=== PATIENT | male | born 1960 ===

== ENCOUNTER 2019-11-26 22:31 | Inpatient (IN) | payer OTHER ==
[~2019-11-26] VITALS: Ht 175.3 cm; Wt 94.0 kg
[~2019-11-26 22:31] MED LIST: ALBU90OI6 INH; BUDE10.22 INH; Cough Syru100 MG/5 M PO; ELIQUIS5 MG PO; Flonase 0.05% N16 GM; HYDACE5325 PO; Inderal 20 mg T20 MG GT; LANS15EC PO; Loratadine10 MG PO; SERT25 PO
[2019-11-26 23:01] LABS: BASOPHILS ABSOLUTE AUTO 0.05 K/mm3 (0.00-0.23); BASOPHILS PERCENT AUTO 1 % (0-2); EOSINOPHILS PERCENT AUTO 2 % (0-6); Hematocrit 45.9 % (37.0-53.0); Hemoglobin 15.5 g/dL (13.5-17.5); IMMATURE GRAN ABSOLUTE AUTO 0.02 K/mm3 (0.00-0.10); IMMATURE GRAN PERCENT AUTO 0 % (0-1); LYMPHOCYTES ABSOLUTE AUTO 1.67 K/mm3 (0.84-5.20); LYMPHOCYTES PERCENT AUTO 29 % (21-46); MONOCYTES ABSOLUTE AUTO 0.61 K/mm3 (0.16-1.47); MONOCYTES PERCENT AUTO 11 % (4-13); Mean Corpuscular HGB 32.4 pg (26.0-34.0); Mean Corpuscular HGB Conc 33.8 g/dL (31.5-36.5); Mean Corpuscular Volume 96 fL (80-100); Mean Platelet Volume 8.5 fL (9.1-12.4); NEUTROPHILS PERCENT AUTO 58 % (41-73); Platelet Count 286 K/mm3 (150-400); RDW Coefficient Variation 12.3 % (11.7-14.2); RDW Standard Deviation 44.1 fL (35.1-46.3); Red Blood Cell Count 4.78 M/mm3 (4.30-5.90); White Blood Cell Count 5.75 K/mm3 (4.00-11.30)
[2019-11-26 23:19] LABS: Alanine Aminotransfer (ALT/SGP 26 U/L (12-78); Albumin, Blood 3.8 g/dL (3.4-5.0); Alk Phos 125 U/L (50-136); Anion Gap 7 mmol/L (6-16); Aspartate Aminotrans (AST/SGOT 29 U/L (12-37); Bilirubin, Total 0.6 mg/dL (0.1-1.0); Blood Urea Nitrogen 14 mg/dL (8-24); Bun/Creatinine Ratio 13.1 (12.0-20.0); CO2, Blood 25 mmol/L (21-32); Calcium, Blood 8.5 mg/dL (8.5-10.1); Chloride, Blood 106 mmol/L (98-108); Creatinine, Blood 1.07 mg/dL (0.60-1.20); Ethanol (Alcohol), Blood, Med 23 mg/dL; Glomerular Filtration Rate >60 (60-); Glucose, Blood 92 mg/dL (70-99); Potassium, Blood 3.9 mmol/L (3.5-5.5); Sodium, Blood 138 mmol/L (136-145); Total Protein, Blood 7.8 g/dL (6.4-8.2); Troponin I <0.015 ng/mL (0.000-0.040)
[2019-11-27 04:11] LABS: Anion Gap 6 mmol/L (6-16); Blood Urea Nitrogen 17 mg/dL (8-24); Bun/Creatinine Ratio 18.2 (12.0-20.0); CO2, Blood 23 mmol/L (21-32); Calcium, Blood 7.9 mg/dL (8.5-10.1); Chloride, Blood 110 mmol/L (98-108); Creatinine, Blood 0.93 mg/dL (0.60-1.20); Glomerular Filtration Rate >60 (60-); Glucose, Blood 109 mg/dL (70-99); Potassium, Blood 4.4 mmol/L (3.5-5.5); Sodium, Blood 139 mmol/L (136-145)
[2019-11-27 04:15] LABS: Cholesterol 210 mg/dL (50-200); HDL Cholesterol 30 mg/dL (>39); LDL/HDL RATIO Unable to Calculate; Low Density Lipoprotein Chol Unable to Calculate mg/dL (0-110); Triglycerides 478 mg/dL (30-160); Very Low Density Lipoprot Chol Unable to Calculate mg/dL (6-32)
--- NOTE | 2019-11-27 04:32 | NUR ---
SHIFT SUMMARY: PATIENT ARRIVED TO ROOM U13 AT APPROX 0040 VIA GURNEY FROM ER. PATIENT ABLE TO PIVOT TRANSFER TO BED FROM [place], STEADY ON FEET, VERY DYSPENIC WITH SMALL MOVEMENTS. PATIENT SKIN C/D/I, ABDOMEN FIRM AND DISTENDED. PATIENT ALERT AND ORIENTED, ADMISSION COMPLETED. PATIENT ORIENTED TO ROOM, CALL LIGHT AND HOSPITAL POLICIES. HR RANGING FROM 100 TO 130, TRENDING DOWN WITH ADMINISTRATION OF ORDERED MEDICATIONS (SEE EMAR). ALL OTHER VSS, CALL LIGHT WITHIN REACH, BED LOW AND LOCKED.
--- NOTE | 2019-11-27 07:30 | NUR ---
REPORT REC'D FROM NINI WEST. 0700 MED DUE AND GIVEN. DILT GTT INFUSING AT 10MG/HR BAG EMPTY, NEW ONE REQUESTED. PT ALSO REPORTS HEADACHE, TYLENOL GIVEN. VSS - HR 90'S-150'S ASSESSMENT NOTED. CALL LIGHT IN REACH.
[2019-11-27 07:50] LABS: Source, Urine Voided
[2019-11-27 07:57] LABS: Bilirubin, Urine Neg (Neg); Blood, Urine 1+ (Neg); Glucose Qualitative, Urine Neg (Neg); Ketones, Urine Neg (Neg); Leukocyte Esterase, Urine 1+ (Neg); Nitrite, Urine Neg (Neg); Protein, Urine Neg (Neg); Urobilinogen, Urine NORM (Normal)
[2019-11-27 08:05] LABS: Appearance, Urine Clear (Clear); Color, Urine Yellow (P-Yellow)
[2019-11-27 08:10] LABS: Bacteria Mod /hpf; Squamous Epithelial Cells Few /hpf (Few)
[2019-11-27 08:36] LABS: U Amphetamine Screen Not Detected; U Barbituate Screen Not Detected; U Benzodiazapine Screen Not Detected; U Buprenorphine Screen Not Detected; U Cannabinoids Screen Not Detected; U Cocaine Screen Not Detected; U Methadone Screen Not Detected; U Methamphetamine Screen Not Detected; U Opiates Screen Not Detected; U Oxycodone Screen Not Detected; U Phencyclidine Screen Not Detected; U Propoxyphene Screen Not Detected
--- NOTE | 2019-11-27 11:50 | NUR ---
PT CONVERTED TO NSR AT 1140 DR ROMERO NOTIFIED. NEW ORDERS ALSO ENTERED. CARDIZEM STOPPED AND IV SL'D. NEW MEDS GIVEN. PT REPORTS HEADACHE IMPROVED. CALL LIGHT IN REACH.
--- NOTE | 2019-11-27 14:25 | NUR ---
PT REPORTING UPPER BACK PAIN. TYLENOL GIVEN REQUESTED. NO ADDITIONAL NEEDS.CALL LIGTH IN REACH.
--- NOTE | 2019-11-27 17:53 | NUR ---
SHIFT SUMMARY PT DOING BETTER THIS EVENING. NO LONGER REPORTING TIGHTNESS OR DISCOMFORT TO CHEST/BACK/RIBS/ABD, HEADACHE RESOLVED WELL. PT AMBULATORY AND INDEPENT IN ROOM. CONVERTED FROM AFIB TO NSR AT 1140 THIS MORNING, STRIP IN CHART, DR ROMERO NOTIFIED. ALSO ISSUED NEW ORDERS AROUND THE SAME TIME AND WAS ALSO NOTIFIED DILTIAZEM DRIP HAS BEEN STOPPED. NO OTHER CHANGES THIS SHIFT. PT CURRENTLY HAVING DINNER WITH SPOUSE, CALL LIGHT IN REACH. WILL REPORT TO CALEB RN.
--- NOTE | 2019-11-28 06:25 | NUR ---
SHIFT SUMMARY PT SLEEPING IN ROOM COMFORTABLY AT THIS TIME. NO ACUTE CHANGES IN STATUS. PT SLEPT WELL T/O NIGHT. DENIED CP OR SOB. RESP EVEN UNLABORED ON RA W/ SATS >92%. PT WAS INDEPENDENT IN ROOM T/O NIGHT. TOOK SHOWER BEFORE BED. PT DENIED NEEDS. CALL LIGHT IN REACH.
--- NOTE | 2019-11-28 07:49 | NUR ---
REPORT REC'D FROM DAVID WEST. PT SITTING UP IN BED WATCHING A MOVIE ON LAPTOP. NADN. VSS. DENIES ANY NEEDS AT THIS TIME. ASSESSMENT NOTED. CALL LIGHT IN REACH.
[2019-11-28] MEDS ORDERED: Mucinex1200 MG PO (10:20)
[2019-11-28] MEDS ORDERED: METO25ER PO (10:20)
[2019-11-28] MEDS ORDERED: PRED20 PO (10:22)
--- NOTE | 2019-11-28 11:07 | NUR ---
PT DC'D WITH VERBAL AND WRITTEN INSTRUCTIONS AFTER REC'ING ADD'L EDUCATION FROM CAROLE Simpson RN. QUESTIONS ADDRESSED TO PT'S SATIFACTION. IV'S DC'D CATH INTACT X2. PT CALLING SPOUSE FOR RIDE HOME. TELE REMOVED EARLIER.
== END 2019-11-28 12:37 | disposition home or self-care (01) | DRG 309 ==
LOC: ER 22:31 → PCU 22:32 → ER 22:32 → PCU 11-27 00:38
PROVIDERS: Emergency Medicine; Nurse Practitioner Acute Care; ADMIT Internal Medicine
DX: I48.91 Unspecified atrial fibrillation (principal); J44.1 Chronic obstructive pulmonary disease with (acute) exacerbation; I10 Essential (primary) hypertension; K21.9 Gastro-esophageal reflux disease without esophagitis; E78.5 Hyperlipidemia, unspecified; F43.10 Post-traumatic stress disorder, unspecified; F17.210 Nicotine dependence, cigarettes, uncomplicated; Z85.118 Personal history of other malignant neoplasm of bronchus and lung; Z92.21 Personal history of antineoplastic chemotherapy; Z92.3 Personal history of irradiation; Z79.51 Long term (current) use of inhaled steroids; Z79.899 Other long term (current) drug therapy
CPT/HCPCS: 36415; 71045; 80048; 80053; 80061; 81001; 83880; 84443; 84484; 85025; 93005; 93010; 94640; 94760; 96365; 96368; 96375; 96376; 99285-25; A9270; G0480; J1160; J2405; J2930; J3475; J7030; J7050

== ENCOUNTER 2020-10-24 16:41 | Inpatient (IN) | payer OTHER ==
[~2020-10-24] VITALS: Ht 165.1 cm; Wt 90.9 kg
[~2020-10-24 16:41] MED LIST changes: -BUDE10.22 INH; +METO25ER PO; +Mucinex1200 MG PO; +PRED20 PO; +SYMBICORT 160-4.6 GM INH
[2020-10-24 17:04] LABS: BASOPHILS ABSOLUTE AUTO 0.04 K/mm3 (0.00-0.23); BASOPHILS PERCENT AUTO 1 % (0-2); EOSINOPHILS ABSOLUTE AUTO 0.06 K/mm3 (0.00-0.68); EOSINOPHILS PERCENT AUTO 1 % (0-6); Hematocrit 42.9 % (37.0-53.0); Hemoglobin 14.5 g/dL (13.5-17.5); IMMATURE GRAN ABSOLUTE AUTO 0.02 K/mm3 (0.00-0.10); IMMATURE GRAN PERCENT AUTO 0 % (0-1); LYMPHOCYTES ABSOLUTE AUTO 1.35 K/mm3 (0.84-5.20); LYMPHOCYTES PERCENT AUTO 20 % (21-46); MONOCYTES PERCENT AUTO 8 % (4-13); Mean Corpuscular HGB 31.4 pg (26.0-34.0); Mean Corpuscular HGB Conc 33.8 g/dL (31.5-36.5); Mean Corpuscular Volume 93 fL (80-100); Mean Platelet Volume 8.4 fL (9.1-12.4); NEUTROPHILS ABSOLUTE AUTO 4.65 K/mm3 (1.96-9.15); NEUTROPHILS PERCENT AUTO 70 % (41-73); Platelet Count 253 K/mm3 (150-400); RDW Coefficient Variation 12.1 % (11.7-14.2); RDW Standard Deviation 41.4 fL (35.1-46.3); Red Blood Cell Count 4.62 M/mm3 (4.30-5.90); White Blood Cell Count 6.62 K/mm3 (4.00-11.30)
[2020-10-24 17:18] LABS: Alanine Aminotransfer (ALT/SGP 13 U/L (12-78); Albumin, Blood 3.7 g/dL (3.4-5.0); Albumin/Globulin Ratio 1.1 (0.8-1.8); Alk Phos 92 U/L (50-136); Anion Gap 9 mmol/L (6-16); Aspartate Aminotrans (AST/SGOT 20 U/L (12-37); Bilirubin, Total 0.8 mg/dL (0.1-1.0); Blood Urea Nitrogen 13 mg/dL (8-24); Bun/Creatinine Ratio 14.1 (12.0-20.0); CO2, Blood 22 mmol/L (21-32); Chloride, Blood 105 mmol/L (98-108); Creatinine, Blood 0.92 mg/dL (0.60-1.20); Globulin, Blood 3.4 g/dL (2.2-4.0); Glomerular Filtration Rate >60 (60-); Glucose, Blood 98 mg/dL (70-99); Potassium, Blood 4.2 mmol/L (3.5-5.5); Sodium, Blood 136 mmol/L (136-145); Total Protein, Blood 7.1 g/dL (6.4-8.2); Troponin I 0.029 ng/mL (0.000-0.040)
[2020-10-24 17:33] LABS: International Normalized Ratio 1.07; Prothrombin Time Results 11.4 Sec (9.7-11.5)
[2020-10-24] MEDS ORDERED: ELIQUIS5 MG PO (19:55)
[2020-10-24] MEDS ORDERED: ATOR10 PO (20:04)
[2020-10-24] MEDS ORDERED: Vitamin D2000 UNIT PO (20:05)
[2020-10-24] MEDS ORDERED: BUPROPION XL150 M1 PO (20:05)
[2020-10-24] MEDS ORDERED: DOCU100 PO (20:06)
[2020-10-24] MEDS ORDERED: TIOT18 INH (20:07)
[2020-10-24] MEDS ORDERED: Naltrexone HCl50 MG PO (20:07)
[2020-10-24] MEDS ORDERED: TRAZ50 PO (20:08)
[2020-10-24 21:31] LABS: Magnesium, Blood 2.1 mg/dL (1.6-2.4); Phosphorus, Blood 3.5 mg/dL (2.5-4.9); Troponin I 0.048 ng/mL (0.000-0.040)
--- NOTE | 2020-10-25 02:26 | NUR ---
ADMIT PT TO ROOM VIA STRETCHER FROM ER. AXO. WALKS INTO BED. PT IN SINUS RHTYHM. BP STABLE AND INCREASING. ON RA, SPO2 >96%. PT DENYING CP/PRESSURE/SOB. MEDS PER EMAR GIVEN. ADMISSION COMPLETED. NS INFUSING AT 100ML/HR ORDERED. PT PROVIDED SANDWHICH. PT VERYTALKATIVE WITH STAFF. OTHERWISE, PT RESTING POST ADMISSION.
[2020-10-25 04:49] LABS: BASOPHILS ABSOLUTE AUTO 0.04 K/mm3 (0.00-0.23); BASOPHILS PERCENT AUTO 1 % (0-2); EOSINOPHILS PERCENT AUTO 2 % (0-6); Hematocrit 39.6 % (37.0-53.0); Hemoglobin 13.1 g/dL (13.5-17.5); IMMATURE GRAN ABSOLUTE AUTO 0.02 K/mm3 (0.00-0.10); IMMATURE GRAN PERCENT AUTO 0 % (0-1); LYMPHOCYTES ABSOLUTE AUTO 1.45 K/mm3 (0.84-5.20); LYMPHOCYTES PERCENT AUTO 23 % (21-46); MONOCYTES ABSOLUTE AUTO 0.53 K/mm3 (0.16-1.47); MONOCYTES PERCENT AUTO 8 % (4-13); Mean Corpuscular HGB 31.1 pg (26.0-34.0); Mean Corpuscular HGB Conc 33.1 g/dL (31.5-36.5); Mean Corpuscular Volume 94 fL (80-100); Mean Platelet Volume 8.7 fL (9.1-12.4); NEUTROPHILS PERCENT AUTO 66 % (41-73); Platelet Count 225 K/mm3 (150-400); RDW Coefficient Variation 12.1 % (11.7-14.2); RDW Standard Deviation 41.7 fL (35.1-46.3); Red Blood Cell Count 4.21 M/mm3 (4.30-5.90); White Blood Cell Count 6.34 K/mm3 (4.00-11.30)
--- NOTE | 2020-10-25 04:50 | NUR ---
END OF SHIFT SUMMARY NO ACUTE CHANGES THIS SHIFT POST ADMIT. REMAINS AXO, ON RA, IN SR, BP STABLE. HAS CONTINUED TO DENY CP/PRESSURE, SOB. NS INFUSING. VOIDS INTO URINAL. PT USES CALL LIGHT APPROPRIATEWLY. WILL CONTINUE TO MONITOR UNTIL SHIFT CHANGE.
[2020-10-25 05:08] LABS: Anion Gap 5 mmol/L (6-16); Blood Urea Nitrogen 14 mg/dL (8-24); Bun/Creatinine Ratio 16.4 (12.0-20.0); CHOL/HDL RATIO 5.4; CO2, Blood 26 mmol/L (21-32); Calcium, Blood 8.3 mg/dL (8.5-10.1); Chloride, Blood 110 mmol/L (98-108); Cholesterol 166 mg/dL (50-200); Creatinine, Blood 0.86 mg/dL (0.60-1.20); Glomerular Filtration Rate >60 (60-); Glucose, Blood 113 mg/dL (70-99); HDL Cholesterol 31 mg/dL (>39); LDL/HDL RATIO 1.8; Low Density Lipoprotein Chol 56 mg/dL (0-110); Magnesium, Blood 2.2 mg/dL (1.6-2.4); Potassium, Blood 3.8 mmol/L (3.5-5.5); Sodium, Blood 141 mmol/L (136-145); Triglycerides 393 mg/dL (30-160); Very Low Density Lipoprot Chol 78 mg/dL (6-32)
--- NOTE | 2020-10-25 08:35 | NUR ---
INITIAL ASSESSMENT PATIENT ALERT AND ORIENTED X 4, AFEBRILE. PATIENT WEAK BUT ABLE TO GET TO TOILET WITH 1 PERSON ASSIST. PATIENT DOES FEEL DIZZY UPON INITIALLY DANGLING ON SIDE OF BED. PATIENT ABLE TO MOVE ALL EXTREMITIES. LIMITED ROM IN R SHOULDER. R SHOULDER IS SORE; PATIENT STATES THIS IS CHRONIC. PATIENT SATTING 90% AND GREATER ON RA. EXPIRATORY WHEEZES NOTED IN UPPER LUNG LOBES. LOWER LOBES DIMINISHED. PATIENT IN SR, HR 70S TO 80S. SBP 100. ABDOMEN MODERATLEY DISTENDED; PATIENT STATES THIS IS NORMAL FOR HIM. WNL. SKIN APPEARS WNL. IVS FLUSHED AND SALINE LOCKED. BED LOW, CALL LIGHT IN REACH. WILL CONTINUE TO MONITOR PATIENT FREQUENTLY THROUGHOUT SHIFT.
[2020-10-25] MEDS ORDERED: ACET325 PO (11:10)
[2020-10-25] MEDS ORDERED: ASPI325 PO (11:11)
[2020-10-25] MEDS ORDERED: LISI5 PO (11:12)
[2020-10-25] MEDS ORDERED: NICODERM CQ TOP (11:13)
[2020-10-25] MEDS ORDERED: NITR.4SL SL (11:13)
[2020-10-25] MEDS ORDERED: ONDA4ODT MM (11:14)
--- NOTE | 2020-10-25 12:20 | NUR ---
SHIFT SUMMARY PATIENT REMAINED ALERT AND ORIENTED X 4, AFEBRILE. PATIENT FELT GOOD AMBULATING AROUND ON OWN PRIOR TO DISCHARGE. PATIENT OFFERED WHEELCHAIR TO TAKE HIM OUT TO CAR. PATIENT WANTED TO WALK AND POLITELY DENIED WHEELCHAIR. SON AT SIDE AND HERE TO DRIVE HIM HOME. PATIENT REMAINED SATTING 90% AND GREATER ON RA. PATIENT REMAINED IN SR, HR 70S TO 80S. SBP 90S TO 100. NO BM THIS SHIFT. PATIENT HAD GOOD APPETITE AND ATE ALL OF BREAKFAST. WNL. SKIN WNL. IVS REMOVED BY CHARGE NURSE, MYNOR. ALL DISCHARGE INFORMATION AND EDUCATION PROVIDED TO PATIENT BY CHARGE NURSE. ALL BELONGINGS SENT HOME WITH PATIENT.
== END 2020-10-25 12:15 | disposition home or self-care (01) | DRG 310 ==
LOC: ER 16:41 → ERHOLD 20:58 → ICUE 20:58
PROVIDERS: Emergency Medicine; ADMIT Family Medicine
PROC: 5A2204Z Restoration of Cardiac Rhythm, Single (ICD-10-PCS; principal; 2020-10-24)
DX: I48.91 Unspecified atrial fibrillation (principal); I48.92 Unspecified atrial flutter; I10 Essential (primary) hypertension; E78.5 Hyperlipidemia, unspecified; J44.9 Chronic obstructive pulmonary disease, unspecified; K21.9 Gastro-esophageal reflux disease without esophagitis; Z85.118 Personal history of other malignant neoplasm of bronchus and lung; F43.10 Post-traumatic stress disorder, unspecified; Z90.2 Acquired absence of lung [part of]; I95.9 Hypotension, unspecified; Z79.01 Long term (current) use of anticoagulants; F17.200 Nicotine dependence, unspecified, uncomplicated
CPT/HCPCS: 36415; 71045; 80048; 80053; 80061; 83735; 83880; 84100; 84484; 85025; 85610; 92960; 93005; 93010; 94640; 96365-59; 96366-59; 96368; 96375-59; 96376-59; 99285-25; A9270-GY; J1160; J2060; J3475; J7030

== ENCOUNTER 2024-05-01 21:15 | Inpatient (IN) | payer OTHER ==
[~2024-05-01] VITALS: Ht 167.6 cm; Wt 79.6 kg
[~2024-05-01 21:15] MED LIST changes: +ACET325 PO; +ASPI325 PO; +ATOR10 PO; +BUPROPION XL150 M1 PO; +DOCU100 PO; +IPRATROPIUM BRO30 ML; +LISI5 PO; +LORA10ER; +NICODERM CQ TOP; +NITR.4SL SL; +Naltrexone HCl50 MG PO; +ONDA4ODT MM; +OXAYDO5 M1 PO; +PANT20 PO; +Prozac40 MG PO; +TIOT18 INH; +TRAM50 PO; +TRAZ50 PO; +Vitamin D2000 UNIT PO
[2024-05-01] MEDS ORDERED: TICA90TA PO (21:30)
[2024-05-01] MEDS ORDERED: Ondansetron HCl 2 MG / ML 2ML Vial IV PRN (21:35)
[2024-05-01 21:41] LABS: BASOPHILS ABSOLUTE AUTO 0.01 K/mm3 (0.00-0.23); BASOPHILS PERCENT AUTO 0 % (0-2); EOSINOPHILS PERCENT AUTO 0 % (0-6); Hematocrit 39.2 % (37.0-53.0); Hemoglobin 13.8 g/dL (13.5-17.5); Mean Corpuscular HGB Conc 35.2 g/dL (31.5-36.5); Mean Corpuscular Volume 94 fL (80-100); Mean Platelet Volume 9.1 fL (9.1-12.4); Platelet Count 195 K/mm3 (150-400); RDW Coefficient Variation 12.8 % (11.7-14.2); RDW Standard Deviation 44.1 fL (35.1-46.3); Red Blood Cell Count 4.18 M/mm3 (4.30-5.90); White Blood Cell Count 10.51 K/mm3 (4.00-11.30)
[2024-05-01 21:44] LABS: IMMATURE GRAN ABSOLUTE AUTO 0.04 K/mm3 (0.00-0.10); IMMATURE GRAN PERCENT AUTO 0 % (0-1); LYMPHOCYTES ABSOLUTE AUTO 0.36 K/mm3 (0.84-5.20); LYMPHOCYTES PERCENT AUTO 3 % (21-46); MONOCYTES ABSOLUTE AUTO 0.08 K/mm3 (0.16-1.47); MONOCYTES PERCENT AUTO 1 % (4-13); NEUTROPHILS ABSOLUTE AUTO 10.02 K/mm3 (1.96-9.15); NEUTROPHILS PERCENT AUTO 95 % (41-73)
[2024-05-01 22:25] LABS: Albumin, Blood 3.5 g/dL (3.4-5.0); Albumin/Globulin Ratio 0.9 (0.8-1.8); Alk Phos 209 U/L (50-136); Anion Gap 16 mmol/L (3-11); Bilirubin, Total 6.1 mg/dL (0.1-1.0); Blood Urea Nitrogen 21 mg/dL (8-24); Bun/Creatinine Ratio 13.5 (12.0-20.0); CO2, Blood 20 mmol/L (21-32); Calcium, Blood 8.5 mg/dL (8.5-10.1); Chloride, Blood 100 mmol/L (98-108); Creatinine, Blood 1.55 mg/dL (0.60-1.20); Globulin, Blood 3.8 g/dL (2.2-4.0); Glomerular Filtration Rate 50 (60-); Glucose, Blood 175 mg/dL (70-99); Potassium, Blood 3.8 mmol/L (3.5-5.5); Sodium, Blood 132 mmol/L (136-145); Total Protein, Blood 7.3 g/dL (6.4-8.2)
[2024-05-01] MEDS ORDERED: Metoclopramide HCl 5MG / ML 2ML Vial IV ONE (22:30)
[2024-05-01] MEDS ORDERED: Dextrose 50% 50 ML Syringe IV ONE (22:35)
[2024-05-01 22:36] LABS: Alanine Aminotransfer (ALT/SGP 1910 U/L (12-78)
[2024-05-01 22:38] LABS: Aspartate Aminotrans (AST/SGOT >20000 U/L (12-37)
[2024-05-01] MEDS ORDERED: FentaNYL Citrate 50 MCG/ML 2 ML Injection IV ONE (23:20)
[2024-05-01] MEDS ORDERED: Haloperidol Lactate Inj. 5 MG/ML Injection IV ONE (23:25)
[2024-05-01] MEDS ORDERED: Lactated Ringer's 1,000 ML IV SCH (23:30)
[2024-05-01] MEDS ORDERED: HYDROmorphone HCl/Pf 1MG SYR IV ONE (23:30)
[2024-05-02] VITALS (14 sets, daily range): BP systolic 78–148; BP diastolic 45–74
[2024-05-02 00:33] LABS: Albumin, Blood 3.2 g/dL (3.4-5.0); Albumin/Globulin Ratio 0.9 (0.8-1.8); Bilirubin, Total 5.5 mg/dL (0.1-1.0); Bun/Creatinine Ratio 12.3 (12.0-20.0); Calcium, Blood 8.3 mg/dL (8.5-10.1); Creatinine, Blood 1.79 mg/dL (0.60-1.20); Globulin, Blood 3.5 g/dL (2.2-4.0); Potassium, Blood 3.8 mmol/L (3.5-5.5); Total Protein, Blood 6.7 g/dL (6.4-8.2)
[2024-05-02] MEDS ORDERED: NS 1,000 ML IV SCH (01:00)
[2024-05-02] MEDS ORDERED: HYDROmorphone HCl/Pf 1MG SYR IV PRN ×2 (01:55→09:00)
[2024-05-02] MEDS ORDERED: Albuterol HFA200 ACT/6.7 GM INH INH PRN (03:20)
[2024-05-02] MEDS ORDERED: Tiotropium Bromide 2.5 MCG/ACT MIST INHAL (10 ACT/4 GM) INH SCH (03:20)
[2024-05-02] MEDS ORDERED: Mometasone/Formoterol MDI 100/5 mcg 13 GM INH SCH (03:20)
[2024-05-02] MEDS ORDERED: Metoclopramide HCl 5MG / ML 2ML Vial IV PRN (04:15)
--- NOTE | 2024-05-02 05:11 | NUR ---
SHIFT SUMMARY/ADMIT NOTE PT ARRIVED TO ROOM FROM ER AROUND 0400. PT A/O X4, ABLE TO ANSWER QUESTIONS APPROPRIATELY. PT SBA FOR LINE/CORD MANAGEMENT, PT MINIMALLY WEAK. PT ENDORSES PAIN TO MID-UPPER ABDOMEN, MEDICATING PT PER EMAR. PT NAUSEOUS AND HAD 1 EPISOODE OF EMESIS, MEDICATING PT PER EMAR. PT ON RA, O2 SATS > 90%. CARDIAC MONITORING REFLECTS NSR, HR 70s. SBP 120s-140s. PT AFEBRILE. PIV TO RAC, LR INFUSING AT 200 mL/HR.
[2024-05-02] MEDS ORDERED: Lactated Ringer's 1,000 ML IV SCH (05:50)
[2024-05-02] MEDS ORDERED: Apixaban 5 MG Tab PO SCH (09:00)
[2024-05-02] MEDS ORDERED: Enoxaparin 40 MG/0.4 ML SYR SC SCH (09:00)
[2024-05-02] MEDS ORDERED: Ondansetron HCl 2 MG / ML 2ML Vial IV PRN (09:05)
--- NOTE | 2024-05-02 09:22 | NUR ---
PT MEDICATED PER EMAR FOR PAIN
[2024-05-02 13:22] LABS: International Normalized Ratio 2.89; Prothrombin Time Results 28.6 Sec (9.7-11.5)
[2024-05-02 13:55] LABS: Albumin/Globulin Ratio 0.9 (0.8-1.8); Bilirubin, Total 4.3 mg/dL (0.1-1.0); Bun/Creatinine Ratio 17.9 (12.0-20.0); Calcium, Blood 7.8 mg/dL (8.5-10.1); Creatinine, Blood 1.95 mg/dL (0.60-1.20); Globulin, Blood 3.4 g/dL (2.2-4.0); Potassium, Blood 4.1 mmol/L (3.5-5.5); Total Protein, Blood 6.4 g/dL (6.4-8.2)
[2024-05-02] MEDS ORDERED: TRACE ELEMENTS IV SCH (14:50)
[2024-05-02] MEDS ORDERED: THIAMINE HCL 100 MG IV SCH (14:50)
[2024-05-02] MEDS ORDERED: FOLIC ACID 1 MG IV SCH (14:50)
[2024-05-02] MEDS ORDERED: [UNRECOGNIZED DRUG - OTHER] IV SCH (14:50)
[2024-05-02] MEDS ORDERED: Phenylephrine HCl 100 MCG/ML-NS 10MLSYR (1MG/10ML) IV ONE (16:03)
[2024-05-02] MEDS ORDERED: Etomidate 2MG / ML 10ML Vial IV ONE (16:03)
[2024-05-02] MEDS ORDERED: Rocuronium Bromide 10 MG/ML 5ML Injection IV ONE (16:03)
[2024-05-02 16:31] LABS: Bicarbonate Venous 12.8 mmol/L (24.0-30.0); PCO2 Venous 32.9 mmHg (38-42); pH Blood Venous 7.19 (7.34-7.37)
[2024-05-02 16:32] LABS: Base Excess Venous -15.8 mmol/L
[2024-05-02 16:58] LABS: Acetaminophen, Random 36.2 ug/mL (10.0-30.0)
[2024-05-02 17:16] LABS: Albumin, Blood 2.9 g/dL (3.4-5.0); Albumin/Globulin Ratio 0.9 (0.8-1.8); Bilirubin, Total 4.3 mg/dL (0.1-1.0); Bun/Creatinine Ratio 13.8 (12.0-20.0); Calcium, Blood 7.5 mg/dL (8.5-10.1); Creatinine, Blood 2.68 mg/dL (0.60-1.20); Globulin, Blood 3.3 g/dL (2.2-4.0); Phosphorus, Blood 6.2 mg/dL (2.5-4.9); Potassium, Blood 4.5 mmol/L (3.5-5.5); Total Protein, Blood 6.2 g/dL (6.4-8.2)
--- NOTE | 2024-05-02 19:55 | NUR ---
ASSUMED CARE OF PT AT 0700 THIS AM. PT ALERT AND ORIENTED X 4 T/O THE SHIFT. CRITICAL LABS NOTED AND COMMUNICATED TO DR GALINDO. POISON CONTROL CONTACTED AND RECOMENDATIONS COMMUNICATED WITH DR GALINDO AND ORDERS PLACED. LABS MONITORED AND REPORTED TO NEEDED. PT GIVEN NAC DIRECTED BY THE PHARMACY. PT MEDICATED FOR PAIN AND NAUSEA T/O THE DAY WITH MODERATE EFFECT. PT APPEARS JAUNDICED, ILL AND UNCOMFORTABLE. FAMILY AT BEDSIDE THIS EVENING UPDATED ON PLAN OF CARE. POISON CONTROL WILL CONTINUE TO CHECK IN ON PT'S STATUS AND GIVE RECOMENDATIONS. PT ABLE TO USE CALL LIGHT FOR NEEDS AND COMMUNICATE APPROPRIATELY. SEE DOCUMENTED VS AND ASSESSMENT. REPORT GIVEN TO BRETT CONWAY.
[2024-05-02] MEDS ORDERED: Sodium Bicarb 8.4% 1 MEQ/ML 50 ML Vial IV ONE (20:00)
[2024-05-02] MEDS ORDERED: Midodrine 5 MG Tab PO ONE (20:45)
[2024-05-02] MEDS ORDERED: Atorvastatin 10 MG Tab PO SCH (21:00)
--- NOTE | 2024-05-02 21:16 | NUR ---
POISON CONTROL CALLED WANTING TO SPEAK WITH PROVIDER REGARDING ICU TRANSFER OR POSSIBLE TRANSFER TO OTHER FACILITY, IVETH NUÑEZ NOTIFIED AND GIVEN POISON CONTROL CONTACT INFO TO SPEAK WITH THEIR HOSIERY BAGGER DIRECTLY. NO STATUS CHANGE AT THIS TIME.
--- NOTE | 2024-05-02 21:57 | NUR ---
ASSUMPTION OF CARE AT APPROX 191, THIS RN ASSUMED CARE AT APPROX 191. DURING INITIAL ENCOUNTER, PATIENT UP IN ROOM, LEANING OVER BED REPORTING 9/10 LOWER BACK "PRESSURE". HAD RECEIVED IV DILAUDID PRIOR TO ASSUMPTION OF CARE. PATIENT REPORTS THAT T/O DAY DILAUDID HAD BEEN HELPING. REPORTED THAT PAIN "SEEMS TO BE DIFFERENT." VITAL SIGNS OBTAINED. BLOOD PRESSURE 85/45. DENIES CHEST PAIN, PRESSURE. REPORTS DIZZINESS WITH POSITION CHANGES. DIFFICULTY OBTAINING ACCURATE ORAL TEMPERATURE, TEMPORAL TEMP <96.0. PATIENT RESTLESS IN ROOM. ON ROOM AIR, SATs >90%. TACHYPNEIC, RR 22-28. ABD PAIN WITH PALPATION, HYPOACTIVE BOWEL TONES. DENIES N/V. NAC, BANANA BAG, AND LR INFUSING PER EMAR. MD GO CONTACTED. MD TO BEDSIDE TO ASSESS PATIENT. MD TO BEDSIDE AT APPROX 2014. PATIENT REPORTING THAT PAIN SEEMS TO BE IMPROVING SOME. SBP SUSTAINING 80s. RECEIVED VERBAL ORDER FOR PO MIDODRINE 10MG. ADMINISTERED PER EMAR. SBP 70s AT TIME OF ADMINISTRATION. MOST RECENT BP IMPROVED, SBP 90s. AROUND 2100, RECEIVED CALL FROM POISON CONTROL, UPDATE PROVIDED. LATER, POISON CONTROL CALLED UNIT. POISON CONTROL RECOMMENDING TRANSFER TO ICU OR OUTSIDE [facility]. POISON CONTROL REQUESTING PHONE NUMBER TO DISCUSS WITH MD, PHONE NUMBER PROVIDED. MD GO AWARE, TO CALL POISON CONTROL.
--- NOTE | 2024-05-02 22:16 | NUR ---
UPDATE MOST RECENT BP 84/56, MAP OF 66. MD GO CONTACTED. MD TO UNIT, RECEIVED ORDER FOR ICU TRANSFER. ROADS AND PARKING LOTS SWEEPER OPERATOR AWARE, ICU CHARGE CONTACTED. AWAITING BED PLACEMENT. WILL CONTINUE TO MONITOR.
--- NOTE | 2024-05-02 22:27 | NUR ---
PATIENT REPORTS THAT HE DRINKS ABOUT A 6 PACK OF BEER PER DAY TO EVERY OTHER DAY. CIWA <8 AT THIS TIME.
--- NOTE | 2024-05-02 23:40 | NUR ---
PATIENT TRANSFERRED TO ICU 02. BEDSIDE REPORT GIVEN TO REBECA WEST. CALL PLACED TO AYDE MELISSA WITH UPDATE. CALL WENT TO [employer], MESSAGE LEFT WITH UPDATE REGARDING TRANSFER. PERSONAL BELONGINGS TRANSFERRED WITH PATIENT.
[2024-05-03] VITALS (25 sets, daily range): BP systolic 79–128; BP diastolic 45–117
--- NOTE | 2024-05-03 02:02 | NUR ---
ASSUMPTION OF CARE ASSUMED CARE OF PATIENT AT 2330, BEDSIDE SHIFT REPORT RECEIVED FROM PCU NURSE. PT RESTING IN BED, ALERT AND ORIENTED X4. PT ANSWERS QUESTIONS APPROPRIATELY, FOLLOWS DIRECTION AND IS ABLE TO MAKE NEEDS KNOWN. MOVES EXTREMITIES EQUALLY BILATERALLY. HR 90-100'S SINUS, SBP 90-100'S. MAP 50-60'S ON ARRIVAL MAP CURRENTLY >65. PT ON RA ON TRANSFER TO ICU, PLACED ON 2LPM O2 VIA NC WHILE SLEEPING. ABDOMEN FIRM AND TENDER WITH PALPATION. BOWEL TONES ACTIVE IN ALL FOUR QUADRANTS. MEDICATED FOR PAIN PER EMAR. PT STANDS AT SIDE OF BED AND USES URINAL TO VOID. PIV IN PLACE TO RAC AND LAC. POWERGLIDE IN PLACE TO MESFIN. LR INFUSING AT 100MLS/HR, ACETYLCYSTEINE INFUSING AT 65MLS/HR, BANANA BAG INFUSING AT 100ML/HR. BED IN LOWEST POSITION, CALL LIGHT WITHIN REACH. PT SON AT THE BEDSIDE. CARE CONTINUES.
--- NOTE | 2024-05-03 02:55 | NUR ---
PT UPDATE SPOKE WITH POSION CONTROL, UPDATE GIVEN. RECOMMENDATIONS RECEIVED FOR Q12H INR. RELAYED MESSAGE TO DR. DE JESUS. ORDERS RECEIVED. CARE CONTINUES.
[2024-05-03 05:20] LABS: International Normalized Ratio 2.57; Prothrombin Time Results 25.6 Sec (9.7-11.5)
--- NOTE | 2024-05-03 05:26 | NUR ---
SHIFT SUMMARY PT RESTING IN BED, NO ACUTE CHANGES THIS SHIFT. PT SLEEPING, WHEN AWAKE ORIENTED X4. PT ANSWERS QUESTIONS APPROPRIATELY, FOLLOWS DIRECTION WHEN PROMPTED AND IS ABLE TO MAKE NEEDS KNOWN. PT APPEARS TO BE CONFUSED WHEN FIRST WAKING UP, CLEARS QUICKLY. MOVES ALL EXTREMITIES EQUALLY BILATERALLY. HR 90-100'S SINUS, BLOOD PRESSURES SOFT, SBP 80-110'S. PT INTERMITENTLY ON 2LPM O2 VIA NC WHILE SLEEPING, CURRENTLY ON RA, OXYGEN SATURATION >95%. ABDOMEN FIRM AND TENDER, BOWEL TONES HYPOACTIVE. PT DENIES NAUSEA/VOMITING. PT USES URINAL TO VOID, SBA WITH CORD MANAGEMENT. PIV IN PLACE TO RAC SL. POWERGLIDE IN PLACE TO MESFIN INFUSING LR AT 100MLS/HR WELL ACETLYCYSTEINE INFUSING AT 65MLS/HR. BED IN LOWEST POSITION, CALL LIGHT WITHIN REACH, CARE CONTINUES.
[2024-05-03 05:30] LABS: Acetaminophen, Random 18.7 ug/mL (10.0-30.0)
[2024-05-03 05:36] LABS: Albumin, Blood 2.7 g/dL (3.4-5.0); Albumin/Globulin Ratio 0.9 (0.8-1.8); Bilirubin, Total 2.9 mg/dL (0.1-1.0); Bun/Creatinine Ratio 16.5 (12.0-20.0); Calcium, Blood 7.2 mg/dL (8.5-10.1); Creatinine, Blood 3.22 mg/dL (0.60-1.20); Potassium, Blood 3.6 mmol/L (3.5-5.5); Total Protein, Blood 5.7 g/dL (6.4-8.2)
--- NOTE | 2024-05-03 05:41 | NUR ---
PT UPDATE SPOKE WITH POISON CONTROL TO GIVE UPDATE ON PATIENT CONDITION WELL MOST RECENT LABS. NO NEW RECOMMENDATIONS AT THIS TIME. CARE CONTINUES.
[2024-05-03] MEDS ORDERED: Pantoprazole Sodium 20 MG Tab PO SCH (06:00)
[2024-05-03] MEDS ORDERED: Albumin (Human) 25gm/100ml 100 ML IV SCH (07:35)
[2024-05-03] MEDS ORDERED: Lactated Ringer's 1,000 ML IV SCH (08:00)
[2024-05-03] MEDS ORDERED: Pantoprazole Sodium 40 MG Injection IV SCH (08:00)
[2024-05-03] MEDS ORDERED: Phytonadione 10 MG in NS 50 ML IV ONE (08:30)
[2024-05-03] MEDS ORDERED: NS 250 ML IV PRN (08:45)
--- NOTE | 2024-05-03 11:39 | NUR ---
Spiritual Care Attempted Pt. is sitting up and initially welcomed my visit. During introduction the Pt, disconnected his IV, and verbalized that he was "going stir crazy." Reported to his attending nurse who supervised the Pt. for a local walk. Will attempt another visit at another time.
[2024-05-03 17:04] LABS: International Normalized Ratio 1.9
[2024-05-03 17:07] LABS: Acetaminophen, Random 11.4 ug/mL (10.0-30.0)
[2024-05-03 17:16] LABS: Albumin, Blood 3.9 g/dL (3.4-5.0); Albumin/Globulin Ratio 1.7 (0.8-1.8); Bilirubin, Total 2.6 mg/dL (0.1-1.0); Bun/Creatinine Ratio 17.1 (12.0-20.0); Calcium, Blood 7.1 mg/dL (8.5-10.1); Creatinine, Blood 3.8 mg/dL (0.60-1.20); Globulin, Blood 2.3 g/dL (2.2-4.0); Potassium, Blood 3.6 mmol/L (3.5-5.5); Total Protein, Blood 6.2 g/dL (6.4-8.2)
[2024-05-03 17:51] LABS: Prothrombin Time Results 19.4 Sec (9.7-11.5)
--- NOTE | 2024-05-03 18:15 | NUR ---
SHIFT SUMMARY PATIENT WAS CONFUSED T/O SHIFT. DENIED HALLUCINATION, N/V, HEADACHE, TREMORS, AND ANXIETY. REQUIRES FREQUENT REDIRECTION AND IS IMPULSIVE WITH STANDING AND AMBULATING WITHOUT ASSISTANCE. FREQUENTLY DISCONNECTS INFUSION LINES FROM IV PORTS. LR INF @ 150ML/HR, ACETYLCYSTEINE @ 65ML/HR, AND NS TKO. PATIENT RECEIVED VIT K AND ALBUMIN TODAY. MINIMAL URINE OUTPUT OF 325ML. FAMILY CAME TO VISIT TODAY AND ALL QUESTIONS/CONCERNS ANSWERED. NO OTHER CHANGES THIS SHIFT.
--- NOTE | 2024-05-03 21:39 | NUR ---
ASSUMED CARE CARE WAS ASSUMED OF PT AT 1900. PT A/O TO SELF, UNABLE TO ANSWER MOST QUESTIONS APPROPRIATELY. PT ABLE TO FOLLOW COMMANDS AT TIME BUT WILL CONTINUE TO GET OUT OF BED, PULL AT N/C, AND PULL AT LINES. PT REDIRECTABLE AT TIMES, BUT NEEDING MULTIPLE REDIRECTIONS. PT ENDORSES PAIN TO ABD, MEDICATING PT PER EMAR. 1:1 SITTER AT BEDSIDE. AT TIME OF SHIFT CHANGE PT ON RA, SINCE SHIFT CHANGE PT ON 6 L N/C, O2 SATS DECREASE WHEN SLEEPING AND/OR REPOSITIONING IN BED TO 80s. AT THIS TIME O2 SATS > 90%. CARDIAC MONITORING REFLECTS SINUS TACH, HR 110s. SBP 110s. PT PULLED PG TO MESFIN PRIOR TO SHIFT CHANGE. PIV TO RAC PATENT, ACETYLCYSTEINE INFUSING @ 65 mL/HR AND LR INFUSING @ 150 mL/HR.
[2024-05-03] MEDS ORDERED: LORazepam 2 MG/ML 1ML Injection ONE (21:48)
[2024-05-03] MEDS ORDERED: LORazepam 2 MG/ML 1ML Injection IV PRN (21:50)
[2024-05-03] MEDS ORDERED: LORazepam 2 MG/ML 1ML Injection IV ONE (21:50)
--- NOTE | 2024-05-03 21:56 | NUR ---
PT UPDATE PT GETTING INCREASINLY MORE AGITATED AND CONFUSED, CONTINUING TO STAND UP AT SIDE OF BED BUT UNABLE TO SAY WHY. PT BECOMING LESS REDIRECTABLE. NOTIFIED PROVIDER, SEE EMAR FOR NEW ORDERS.
[2024-05-04] VITALS (44 sets, daily range): BP systolic 65–207; BP diastolic 45–115
[2024-05-04] MEDS ORDERED: Naloxone HCl 0.4MG / ML 1ML Vial IV ONE
[2024-05-04] MEDS ORDERED: Naloxone HCl 0.4MG / ML 1ML Vial ONE (00:06)
[2024-05-04 00:13] LABS: PCO2 Arterial 30.9 mmHg (35-45); PO2 Arterial 263 mmHg (80-100); pH Blood Arterial 7.35 (7.35-7.45)
--- NOTE | 2024-05-04 00:15 | NUR ---
CHANGE IN MENTAL STATUS / INTUBATION NOTE AROUND 2344 THIS RN WENT INTO PT'S ROOM TO DO MIDNIGHT REASSESSMENT. PT APPEARED TO BE COUGHING MORE. ATTEMPTED TO GET PT'S ATTENTION BUT PT WOULD NOT FOLLOW COMMANDS, AND WOULD RAISE HIM ARMS UP IN THE BED WITHOUT PURPOSE. PT'S O2 SATS THEN WENT INTO MID 80s ON 6 L N/C; PT THEN SWITCHED TO 15 L OXIMASK, O2 SATS > 90%. PT'S RR INCREASING AND WOB WORSENING. PT BECOMING MORE AGITATED. PT'S RHYTHM SHORTLY IN VENTRICULAR BIGEMINY; EKG PERFORMED, HOSPITALIST IMMEDIATELY NOTIFIED, ABG AND CHEST XRAY ORDERED. HOSPITALIST CAME TO BEDSIDE, VERBAL ORDER GIVEN FOR 0.4 MG OF NARCAN IV. NARCAN GIVEN, PT BECAME MORE AGITATED WITH NO IMPROVEMENT OF VENTILATION/WOB. HOSPITALIST DISCUSSED WITH SON AT BEDSIDE ABOUT INTUBATING PATIENT AND THE DECISION WAS MADE TO INTUBATE PATIENT; SEE INTUBATION NOTE.
[2024-05-04 00:24] LABS: Hemoglobin 6.3 g/dL (13.5-17.5)
[2024-05-04] MEDS ORDERED: propofoL 100 ML IV ONE (00:26)
[2024-05-04 00:29] LABS: Hematocrit 19.3 % (37.0-53.0); Mean Corpuscular HGB 32.1 pg (26.0-34.0); Mean Corpuscular HGB Conc 32.6 g/dL (31.5-36.5); Mean Platelet Volume 9.4 fL (9.1-12.4); NRBC ABSOLUTE 0.02 K/mm3 (0.00-0.02); NRBC Auto 0.5 /100 WBC (0.0-0.2); Platelet Count 139 K/mm3 (150-400); RDW Coefficient Variation 13.4 % (11.7-14.2); RDW Standard Deviation 47.7 fL (35.1-46.3); Red Blood Cell Count 1.96 M/mm3 (4.30-5.90); White Blood Cell Count 4.18 K/mm3 (4.00-11.30)
[2024-05-04 00:33] LABS: Mean Corpuscular Volume 99 fL (80-100)
[2024-05-04] MEDS ORDERED: propofoL 100 ML IV SCH (00:35)
[2024-05-04] MEDS ORDERED: Pantoprazole Sodium 40 MG Injection IV STA (00:38)
[2024-05-04 00:39] LABS: International Normalized Ratio 1.61; Prothrombin Time Results 16.6 Sec (9.7-11.5)
[2024-05-04] MEDS ORDERED: Pantoprazole Sodium 40 MG in NS 50 ML IV SCH (00:45)
[2024-05-04 00:55] LABS: Acetaminophen, Random 8.9 ug/mL (10.0-30.0)
[2024-05-04] MEDS ORDERED: Midazolam HCl 1MG / ML 2ML Vial IV PRN (00:55)
[2024-05-04] MEDS ORDERED: Midazolam HCl 1MG / ML 2ML Vial ONE (00:57)
[2024-05-04 01:09] LABS: Albumin, Blood 3.6 g/dL (3.4-5.0); Albumin/Globulin Ratio 1.4 (0.8-1.8); Bilirubin, Total 2.5 mg/dL (0.1-1.0); Calcium, Blood 7.6 mg/dL (8.5-10.1); Creatinine, Blood 3.23 mg/dL (0.60-1.20); Globulin, Blood 2.5 g/dL (2.2-4.0); Total Protein, Blood 6.1 g/dL (6.4-8.2)
[2024-05-04 01:40] LABS: pH Blood Arterial 7.18 (7.35-7.45)
[2024-05-04 01:41] LABS: PCO2 Arterial 53.1 mmHg (35-45); PO2 Arterial 87.4 mmHg (80-100)
[2024-05-04] MEDS ORDERED: Esmolol HCL 2500mg/250ml Prema 250 ML IV SCH (02:00)
[2024-05-04] MEDS ORDERED: Ipratropium/Albuterol SulF 2.5-0.5MG/3 ML Amp INH SCH (02:10)
[2024-05-04] MEDS ORDERED: Albuterol 2.5 MG/3 ML VIAL INH PRN (02:10)
[2024-05-04 02:14] LABS: D-Dimer, Quantitative 1.95 mg/L FEU (0.00-0.52)
[2024-05-04] MEDS ORDERED: Sodium Bicarb 8.4% 1 MEQ/ML 50 ML Vial IV ONE (03:00)
[2024-05-04 03:14] LABS: PO2 Arterial 90.9 mmHg (80-100); pH Blood Arterial 7.31 (7.35-7.45)
[2024-05-04 04:28] LABS: Hematocrit 20.4 % (37.0-53.0); Hemoglobin 6.9 g/dL (13.5-17.5)
[2024-05-04 04:52] LABS: Mean Corpuscular HGB 30.9 pg (26.0-34.0); Mean Corpuscular HGB Conc 33.5 g/dL (31.5-36.5); Mean Platelet Volume 9.5 fL (9.1-12.4); NRBC ABSOLUTE 0.03 K/mm3 (0.00-0.02); NRBC Auto 1.4 /100 WBC (0.0-0.2); Platelet Count 107 K/mm3 (150-400); RDW Coefficient Variation 14.8 % (11.7-14.2); Red Blood Cell Count 2.23 M/mm3 (4.30-5.90); White Blood Cell Count 2.09 K/mm3 (4.00-11.30)
--- NOTE | 2024-05-04 04:55 | NUR ---
INTUBATION NOTE 0022 - 50 MCG PHENYLEPHRINE IVP 0022 - 20 MG ETOMIDATE IVP 0022 - 50 MG ROCURONIUM IVP 0023 - INTUBATED BY RT WITH HOSPITALIST AT BEDSIDE, SIZE 8.0, 25 CM AT TEETH WITH POSITIVE COLOR CHANGE. 0024 - ETT ADJUSTED TO 24 CM AT TEETH BY RT. 0030 - OG TUBE PLACE, CLAMPED. OG AND ETT PLACEMENT CONFIRMED WITH XRAY BY HOSPITALIST. AFTER XRAY FINAL ADJUSTMENT FOR ETT MADE BY RT; 23 CM AT THE TEETH.
[2024-05-04] MEDS ORDERED: DEXTROSE 5% IV SCH (05:00)
[2024-05-04] MEDS ORDERED: ACETYLCYSTEINE IV SCH (05:00)
[2024-05-04 05:01] LABS: Source, Urine Foley catheter
[2024-05-04 05:05] LABS: Blood, Urine 3+ (Neg); Glucose Qualitative, Urine Neg (Neg); Ketones, Urine Neg (Neg); Leukocyte Esterase, Urine 2+ (Neg); Nitrite, Urine Neg (Neg); Protein, Urine 2+ (Neg); Urobilinogen, Urine NORM (Normal)
[2024-05-04 05:10] LABS: Mean Corpuscular Volume 92 fL (80-100)
[2024-05-04 05:17] LABS: Appearance, Urine Hazy (Clear); Bilirubin, Urine 2+ (Neg); Color, Urine Yellow (P-Yellow)
[2024-05-04 05:19] LABS: Bacteria Mod /hpf; Squamous Epithelial Cells Few /hpf (Few)
--- NOTE | 2024-05-04 05:44 | NUR ---
SHIFT SUMMARY PT INTUBATED AND SEDATED. PROPOFOL GTT AND PRECEDEX GTT INFUSING, SEE FLOWSHEET. 4 HOUR BLOCK CHARTING USED D/T CONSTANT TITRATIONS UP/DOWN BASED ON PT'S STATUS CHANGING QUICKLY. PT RESPONDS TO NOXIOUS STIMULI, DOES NOT OPEN EYES OR FOLLOW COMMANDS. WHEN PT IS AGITATED HE WILL ATTEMPT TO REACH FOR ETT. PT IN BILATERAL SOFT WRIST RESTRAINTS FOR SAFETY. CPOT 0, RASS -4 AT THIS TIME. PT'S PUPILS 1 CM, BRISKFULLY RESPOND TO LIGHT. SCLEROEDEMA NOTED, YELLOW SCLERA CONTINUES. VENT SETTINGS AT THIS TIME 24/450/7/100%. O2 SATS > 90%. LUNG WILDER COARSE, MORE SO IN R LUNG FIELD. eTCO2 21 AT THIS TIME. PT HAVING BLOODY/THICK/MODERATE AMOUNT OF SECRETIONS. CARDIAC MONITORING REFLECTS NSR/ST, HR 90s-100s. LEVOPHED GTT INFUSING FOR MAP GOAL > 65. LEVOPHED TITRATED WITH BLOCK CHARTING D/T PATIENTS INSTABILITY, SEE FLOWSHEET. ACETYLCYSTEINE INFUSING AT THIS TIME, POISION CONTROL CONSULTED DURING SHIFT. CONCENTRATION CHANGED PER RECOMENDATION FROM POISION CONTROL, SEE EMAR FOR CHANGES. LR INFUSING AT 75 mL/HR. PROTONIX GTT INFUSING AT 10 mL/HR. 4 UNITS PRBCs ORDERED, 4th UNIT INFUSING AT THIS TIME. GUTIERREZ PATENT AND DRAINING TO GRAVITY. RECTAL TUBE INSERTED, BLACK/LIQUID STOOL NOTED IN TUBING. OG TO LIS, RED/FLORIN BLOOD NOTED. PLAN FOR PT TO TRANSFER TO DIFFERENT FACILITY THIS MORNING.
[2024-05-04] MEDS ORDERED: Cefepime HCl 2,000 MG in NS 100 ML IV SCH (06:00)
[2024-05-04] MEDS ORDERED: Lactulose 20 GM/30 ML UDC PT SCH (06:00)
[2024-05-04 06:14] LABS: Influenza A, PCR NEGATIVE (NEGATIVE); Influenza B, PCR NEGATIVE (NEGATIVE); Resp Syncytial Virus, PCR NEGATIVE (NEGATIVE); SARS-Cov-2 (COVID-19) PCR, MMC NEGATIVE (NEGATIVE)
--- NOTE | 2024-05-04 06:27 | NUR ---
BELONGINGS ALL PT'S BELONGINGS SENT HOME WITH FAMILY.
[2024-05-04 07:16] LABS: Hematocrit 27.3 % (37.0-53.0); Hemoglobin 9.3 g/dL (13.5-17.5); Mean Corpuscular HGB 30.4 pg (26.0-34.0); Mean Corpuscular HGB Conc 34.1 g/dL (31.5-36.5); Mean Corpuscular Volume 89 fL (80-100); Mean Platelet Volume 9.1 fL (9.1-12.4); NRBC ABSOLUTE 0.06 K/mm3 (0.00-0.02); NRBC Auto 2.7 /100 WBC (0.0-0.2); Platelet Count 111 K/mm3 (150-400); RDW Coefficient Variation 15.9 % (11.7-14.2); RDW Standard Deviation 52.1 fL (35.1-46.3); Red Blood Cell Count 3.06 M/mm3 (4.30-5.90)
--- NOTE | 2024-05-04 07:42 | NUR ---
ASSUMED CARE BEDSIDE REPORT FROM KELLY WEST AT 0700. PT INTUBATED AND SEDATED. VENT SETTINGS AC/VC 24/450/7/100%. LUNGS CLEAR ON LEFT, COARSE ON RIGHT. MODERATE AMOUNT OF THICK RED SPUTUM FROM ETT. COUGH/GAG REFLEX PRESENT. PUPILS 1 MM. DOES NOT WITHDRAW EXT TO PAIN. RASS -4. PROPOFOL AND PRECEDEX GTT FOR SEDATION. SR, RATE 90'S. LEVO GTT FOR MAP>65. PT JAUNDICE, TEMP 99.5. ABD FIRM, DISTENDED, HYPOACTIVE BT. OGT TO LIS, RED EMESIS OUT. RECTAL TUBE IN PLACE, BLACK LIQUID STOOL OUT. GUTIERREZ PATENT, DRAINING CLEAR YELLOW URINE TO GRAVITY. CVC TO RIJ, OOZING BLOOD. PIV X 2. NAC GTT AND PROTONIX GTT INFUSING. PLAN TO TRANSFER VIA REACH TO [facility], REPORT CALLED TO [facility] BY KELLY. WILL CONTINUE PLAN OF CARE.
[2024-05-04] MEDS ORDERED: Lactulose 200 GM/300 ML Enema 300ML BTL PR SCH (08:00)
[2024-05-04 08:48] LABS: BAND PERCENT MAN 7 % (0-8); BASOPHILS PERCENT MAN 0 % (0-2); EOSINOPHILS PERCENT MAN 0 % (0-6); LYMPHOCYTES ABSOLUTE MAN 0.46 K/mm3 (0.84-5.20); LYMPHOCYTES PERCENT MAN 21 % (21-46); METAMYELOCYTE ABSOLUTE MAN 0.02 K/mm3 (0.00-0.00); METAMYELOCYTE PERCENT MAN 1 % (0-0); MONOCYTES ABSOLUTE MAN 0.04 K/mm3 (0.16-1.47); MONOCYTES PERCENT MAN 2 % (4-13); NEUTROPHILS ABSOLUTE MAN 1.67 K/mm3 (1.96-9.15); SEG NEUTROPHILS PERCENT MAN 69 % (41-73); TOTAL CELLS COUNTED 100
--- NOTE | 2024-05-04 09:38 | NUR ---
REPORT TO REACH TEAM. PT TRANSFERRED TO [facility]. NAC D/C'D PER PHARMACY. SON UPDATED ON TRANSFER TIME. NO BELONGINGS.
== END 2024-05-04 09:27 | disposition short-term general hospital (02) | DRG 917 ==
LOC: ER 21:15 → ICUE 05-02 02:16 → PCU 05-02 02:16 → ICUE 05-02 23:20
PROVIDERS: Emergency Medicine; Family Medicine Adult Medicine; Internal Medicine; Student in an Organized Health Care Education/Training Program; ADMIT Internal Medicine
PROC: 4A133R1 Monitoring of Arterial Saturation, Peripheral, Percutaneous Approach (ICD-10-PCS; 2024-05-02)
PROC: 3E033XZ Introduction of Vasopressor into Peripheral Vein, Percutaneous Approach (ICD-10-PCS; 2024-05-02)
PROC: 5A1935Z Respiratory Ventilation, Less than 24 Consecutive Hours (ICD-10-PCS; principal; 2024-05-04)
PROC: 0BH17EZ Insertion of Endotracheal Airway into Trachea, Via Natural or Artificial Opening (ICD-10-PCS; 2024-05-04)
PROC: 0DH67UZ Insertion of Feeding Device into Stomach, Via Natural or Artificial Opening (ICD-10-PCS; 2024-05-04)
PROC: 30233N1 Transfusion of Nonautologous Red Blood Cells into Peripheral Vein, Percutaneous Approach (ICD-10-PCS; 2024-05-04)
PROC: 02HV33Z Insertion of Infusion Device into Superior Vena Cava, Percutaneous Approach (ICD-10-PCS; 2024-05-04)
DX: T39.1X1A Poisoning by 4-Aminophenol derivatives, accidental (unintentional), initial encounter (principal); J80 Acute respiratory distress syndrome; K85.20 Alcohol induced acute pancreatitis without necrosis or infection; K72.00 Acute and subacute hepatic failure without coma; N17.9 Acute kidney failure, unspecified; K86.0 Alcohol-induced chronic pancreatitis; D68.9 Coagulation defect, unspecified; K92.1 Melena; E87.4 Mixed disorder of acid-base balance; I48.91 Unspecified atrial fibrillation; J44.9 Chronic obstructive pulmonary disease, unspecified; R94.5 Abnormal results of liver function studies; I10 Essential (primary) hypertension; K21.9 Gastro-esophageal reflux disease without esophagitis; R74.01 Elevation of levels of liver transaminase levels; F10.20 Alcohol dependence, uncomplicated; E86.0 Dehydration; D64.9 Anemia, unspecified; F43.10 Post-traumatic stress disorder, unspecified; Z98.890 Other specified postprocedural states; Z90.49 Acquired absence of other specified parts of digestive tract; Z87.891 Personal history of nicotine dependence; Z79.51 Long term (current) use of inhaled steroids; Z79.82 Long term (current) use of aspirin; Z79.01 Long term (current) use of anticoagulants; Z79.899 Other long term (current) drug therapy; Z79.891 Long term (current) use of opiate analgesic
CPT/HCPCS: 0241U; 31500; 31720; 36415; 36430; 36556; 36600; 51703; 70450; 71045; 71046; 71250; 74176; 74177; 74183; 80053; 81001; 82140; 82330; 82803; 82947; 83605; 83690; 84100; 84484; 85014; 85018; 85025; 85027; 85379; 85384; 85610; 85730; 86850; 86900; 86901; 86923; 87070; 87077; 87086; 87185; 87186; 87205; 93005; 93010; 94002; 94640; 94664; 94760; 94762; 96361; 96374-59; 96375-59; 96376; 99285-25; A9270; A9579; C1751; C9113; G0480; J0132; J0692; J1170; J1630; J2060; J2250; J2310; J2371; J2405; J2704; J2765; J3010; J3370; J3411; J3430; J7030; J7050; J7060; J7070; J7120; P9016; P9047; Q9967